=== PATIENT | female | born 1975 | race Caucasian/White ===

== ENCOUNTER 2020-03-02 17:12 | Emergency (ER) | payer OTHER, SELFPAY ==
[2020-03-02 17:30] VITALS: BP 141/79; PULSE 83; RESP 16; TEMP 36.6; O2SAT 100; BMI 23.0
--- NOTE | 2020-03-02 17:48 | ED.BACK ---
HPI - Back Pain/Injury General Chief Complaint: Back Pain/Injury <RUSLAN Dumont - Last Filed: 03/02/20 18:01> Stated Complaint: Back Pain <RUSLAN Dumont - Last Filed: 03/02/20 18:01> Time Seen by Provider: 03/02/20 17:39 <RUSLAN Dumont - Last Filed: 03/02/20 18:01> History of Present Illness HPI Narrative: patient complains of right-sided low back pain that radiates intermittently to the right thigh, no numbness no weakness or paresthesias no change in bowel or bladder habits, no injury no falls <RUSLAN Dumont - Last Filed: 03/02/20 18:01> Related Data Home Medications: Previous Rx's Medication Instructions Recorded cyclobenzaprine 10 mg PO TID PRN #14 tab 03/02/20 hydrocodone-acetaminophen 1 - 2 tab PO Q6H PRN #14 tab 03/02/20 ibuprofen 600 mg PO Q6H PRN #20 tab 03/02/20 <RUSLAN Dumont - Last Filed: 03/02/20 18:01> Allergies/Adverse Reactions: Allergies Allergy/AdvReac Type Severity Reaction Status Date / Time No Known Allergies Allergy Unverified 02/14/20 19:39 [No Known Allergies*] <RUSLAN Dumont - Last Filed: 03/02/20 18:01> Review of Systems Review of Systems: no numbness no weakness or paresthesias no fever no chills no chest pain no abdominal pain no urinary changes no urinary symptoms no changes to bowel or bladder, no trauma <RUSLAN Dumont - Last Filed: 03/02/20 18:01> Yes all other systems are reviewed and are negative <RUSLAN Dumont - Last Filed: 03/02/20 18:01> PMFSH Past Medical History Source: nursing notes reviewed <RUSLAN Dumont - Last Filed: 03/02/20 18:01> Medical History: Medical History (Updated 03/02/20 @ 17:54 by RUSLAN Dumont) Asthma <RUSLAN Dumont Last Filed: 03/02/20 18:01> Surgical History: Surgical History (Updated 03/02/20 @ 17:33 by Marina Michel) History of throat surgery <RUSLAN Dumont - Last Filed: 03/02/20 18:01> Social History Social History: Social History Smoking Status: Current every day smoker Use of substances other than those prescribed or required for medical reasons: No Advance Directives: No Advance Directives Information Provided: No <RUSLAN Dumont - Last Filed: 03/02/20 18:01> Physical Exam Vital Signs and I&O and Narrative: Vital Signs and I&O: Vital Signs Temp 97.9 F 03/02/20 17:30 Pulse 83 03/02/20 17:30 Resp 16 03/02/20 17:30 BP 141/79 H 03/02/20 17:30 Pulse Ox 100 03/02/20 17:30 Intake & Output 03/01/20 03/02/20 03/02/20 18:59 06:59 18:59 Weight 58.967 kg Body Mass Index 23.0 <RUSLAN Dumont Last Filed: 03/02/20 18:01> Vital Signs and I&O: Vital Signs Temp 97.9 F 03/02/20 17:30 Pulse 83 03/02/20 17:30 Resp 16 03/02/20 17:30 BP 141/79 H 03/02/20 17:30 Pulse Ox 100 03/02/20 17:30 Intake & Output 03/01/20 03/02/20 03/02/20 18:59 06:59 18:59 Weight 58.967 kg Body Mass Index 23.0 <Davonte Abbasi DO - Last Filed: 03/02/20 18:31> patient is in no acute distress but appears uncomfortable she is A&O x3 and cooperative Normocephalic atraumatic neck is supple chest is nontender the abdomen is soft and nontender the back has right low back tenderness soft tissue tenderness, no bony tenderness, the skin is normal color there is no redness or warmth or swelling or rash, pain is easily reproduced with movement, there is no CVA tenderness Extremities is full range of motion x4 Neuro is a and O x3 with no numbness no weakness, gait is normal <RUSLAN Dumont Last Filed: 03/02/20 18:01> Discharge Plan Discharge Clinical Impression: Back pain Qualifiers: Back pain location: low back pain Back pain laterality: right <RUSLAN Dumont - Last Filed: 03/02/20 18:01> Patient Disposition: Home, Self-Care <RUSLAN Dumont Last Filed: 03/02/20 18:01> Instructions: Back Pain (ED) <RUSLAN Dumont - Last Filed: 03/02/20 18:01> Additional Instructions: follow with primary care doctor as needed for possible physical therapy, and further evaluation Chiropractor, massage acupuncture are all helpful Return any time if worse <RUSLAN Dumont Last Filed: 03/02/20 18:01> Prescriptions: New hydrocodone-acetaminophen 5-325 mg tablet 1 - 2 tab PO Q6H PRN (Reason: pain) Qty: 14 RF: 0 ibuprofen 600 mg tablet 600 mg PO Q6H PRN (Reason: pain) Qty: 20 RF: 0 cyclobenzaprine 10 mg tablet 10 mg PO TID PRN (Reason: muscle spasm) Qty: 14 RF: 0 <RUSLAN Dumont Last Filed: 03/02/20 18:01> Stand Alone Forms: Work/School Release <RUSLNA Dumont Last Filed: 03/02/20 18:01>
[2020-03-02] MEDS: HYDROcodone Bit/Acetam 5/325 TABLET 2 TAB PO (18:06)
[2020-03-02] MEDS: Ketorolac Tromethamine 30 MG/ML VIAL IM (18:06)
== END 2020-03-02 19:00 | disposition home or self-care (01) ==
PROVIDERS: Emergency Provider Emergency Medicine
DX: M54.5 Low back pain (principal)
CPT/HCPCS: 96372; 99284; J1885

== ENCOUNTER 2020-04-05 21:15 | Emergency (ER) | payer OTHER, SELFPAY ==
[2020-04-05 21:17] VITALS: BP 134/87; PULSE 99; RESP 22; TEMP 37.1; O2SAT 97; BMI 21.2
--- NOTE | 2020-04-05 21:54 | ED.BACK ---
HPI - Back Pain/Injury General Chief Complaint: Back Pain/Injury Stated Complaint: Back pain Time Seen by Provider: 04/05/20 21:45 History of Present Illness HPI Narrative: Patient is a 44-year-old female no history of trauma. Presents today with having back pain radiating down the left lower extremity down to the thigh area. No bowel urinary incontinence. No focal weakness. The pain is sharp in nature. Is very sudden in onset. Patient denies any systemic complaints. No history of IV drug use. No upper respiratory symptoms. Patient from home. Attempted to use Motrin about 4 hours ago without any relief of pain. Presented to the emergency department. Related Data Previous Rx's Medication Instructions Recorded cyclobenzaprine 10 mg PO TID PRN #14 tab 03/02/20 hydrocodone-acetaminophen 1 - 2 tab PO Q6H PRN #14 tab 03/02/20 ibuprofen 600 mg PO Q6H PRN #20 tab 03/02/20 cyclobenzaprine 10 mg PO TID PRN #14 tab 04/05/20 ibuprofen 400 mg PO Q6H PRN #20 tab 04/05/20 Allergies Allergy/AdvReac Type Severity Reaction Status Date / Time No Known Allergies Allergy Verified 04/05/20 21:20 [No Known Allergies*] Review of Systems Review of Systems: Constitutional: No Weight loss, No Fever, No Chills, No Night Sweats, No Fatigue, No Malaise ENT/Mouth: No Hearing loss, No Ear Pain, No Nasal Congestion, No Sinus Pain, No Hoarseness, No sore throat, No Rhinorrhea, No Swallowing Difficulty Eyes: No Eye Pain, No Swelling, No Redness, No Foreign Body, No Discharge, No Vision Changes Cardiovascular: No Chest Pain, No SOB, No Dyspnea on Exertion, No Orthopnea, No Edema, No Palpitations Respiratory: No Cough, No Sputum, No Wheezing, No Smoke Exposure, No Dyspnea Gastrointestinal: No Nausea, No Vomiting, No Diarrhea, No Constipation, No abdominal Pain, No Hematochezia, No Melena Genitourinary: no irregular bleeding, No Dysuria, No Urinary Frequency, No Hematuria, No Urinary Incontinence, No Urgency, No Flank Pain, No Urinary Flow Changes, No Hesitancy Musculoskeletal: No joint pain, No Myalgias, No Joint Swelling Skin: No Skin Lesions, No rash Neuro: No Weakness, No Numbness, No Paresthesias, No Loss of Consciousness, No Dizziness, No Headache Psych: No Anxiety/Panic, No Depression, No SI/HI/AH/VH, No Social Issues, Heme/Lymph: No Bruising, No Bleeding,No Lymphadenopathy Endocrine: No Polyuria, No Polydipsia, No Temperature Intolerance Yes all other systems are reviewed and are negative [facility] Past Medical History Attestation statement: The following information was validated with the patient. Medical History Asthma Surgical History History of throat surgery Social History Social History Alcohol intake: never Smoking Status: Current every day smoker Smoked in Last 30 Days: Yes Use of substances other than those prescribed or required for medical reasons: No Advance Directives: No Advance Directives Information Provided: Yes Physical Exam Vital Signs: Vital Signs: Last Vital Signs Temp 98.8 F 04/05/20 21:17 Pulse 68 04/05/20 23:05 Resp 16 04/05/20 23:05 BP 123/77 04/05/20 23:05 Pulse Ox 97 04/05/20 23:05 Body Mass Index 21.2 Appearance: Alert. Oriented X3. No acute distress. Eyes: Pupils equal, round and reactive to light. ENT: Pharynx normal. Neck: Normal inspection. Neck supple. No lymph nodes noted. No crepitus CVS: Normal heart rate and rhythm. Pulses normal. Normal S1 and S2 Respiratory: No respiratory distress. Breath sounds normal. No Wheezing. No rales Abdomen: Soft and nontender. No rigidity. No distention. good BS x4 Skin: Skin warm and dry. Normal skin color. Normal skin turgor. Extremities: No lower extremity edema. Neurovascular intact to all extremities. No Lacerations. No Rash, negative straight leg raise test. Sensation in lower extremity intact. Able to ambulate. Neuro: Oriented X 3. No motor deficit. No sensory deficit. Moving all extermities. No slurred speech, reflexes are 2+ at patella bilaterally Back exam there is no spinal tenderness. There is paraspinal muscle tenderness on palpation on the left side. MDM - Back Pain/Injury MDM Narrative Medical decision making narrative: Patient has no bowel urinary incontinence. No focal weakness. Pain improved with medication. Will discharge patient home close follow-up on an outpatient basis. In stable condition. Discharge Plan Discharge Clinical Impression: Sciatica Patient Disposition: Home, Self-Care Instructions: Sciatica (ED) Prescriptions: New ibuprofen 400 mg tablet 400 mg PO Q6H PRN (Reason: pain) Qty: 20 RF: 0 cyclobenzaprine 10 mg tablet 10 mg PO TID PRN (Reason: muscle spasm) Qty: 14 RF: 0 No Action hydrocodone-acetaminophen 5-325 mg tablet 1 - 2 tab PO Q6H PRN (Reason: pain) Qty: 14 RF: 0 ibuprofen 600 mg tablet 600 mg PO Q6H PRN (Reason: pain) Qty: 20 RF: 0 cyclobenzaprine 10 mg tablet 10 mg PO TID PRN (Reason: muscle spasm) Qty: 14 RF: 0 Referrals: Physician,Unknown [Primary Care Provider] - 2 days
[2020-04-05] MEDS: LORazepam 2 MG/ML VIAL 0.5 MG IVPUSH (22:19)
[2020-04-05 22:23] VITALS: RESP 18
[2020-04-05] MEDS: HYDROmorphone HCl 0.5 MG/0.5 ML SYRINGE IVPUSH (22:23)
[2020-04-05] MEDS: ondansetron HCL 4 MG/2 ML VIAL IVPUSH (22:25)
[2020-04-05] MEDS: Ketorolac Tromethamine 15 MG/ML VIAL IV (22:40)
[2020-04-05 22:52] VITALS: BP 122/68; PULSE 87; RESP 18
[2020-04-05 23:05] VITALS: BP 123/77; PULSE 68; RESP 16; O2SAT 97
--- NOTE | 2020-04-05 23:13 | PC.NURSE ---
PT FEELS RELIEF AFTER PAIN MEDICATION 4
== END 2020-04-05 23:21 | disposition home or self-care (01) ==
PROVIDERS: Emergency Provider Emergency Medicine Emergency Medical Services
DX: M54.32 Sciatica, left side (principal); M54.31 Sciatica, right side; M79.652 Pain in left thigh; F17.200 Nicotine dependence, unspecified, uncomplicated; Z71.6 Tobacco abuse counseling; Z79.899 Other long term (current) drug therapy
CPT/HCPCS: 96374; 96375; 99284; J1170; J1885; J2060; J2405

== ENCOUNTER 2020-04-11 18:07 | Emergency (ER) | payer OTHER, SELFPAY ==
[2020-04-11 18:21] VITALS: BP 109/85; PULSE 110; RESP 16; TEMP 37.1; O2SAT 100; BMI 21.2
--- NOTE | 2020-04-11 18:30 | ED_ITS ---
HPI - Back Pain/Injury General Chief Complaint: Back Pain/Injury Stated Complaint: Back Pain (no inj) Time Seen by Provider: 04/11/20 18:30 History of Present Illness HPI Narrative: Patient complains of pain in the low back that is radiating to the right leg, no weakness no incontinence no loss of sensation, she has had no recent injury, she was seen here recently 3 days ago for the same pain and was treated with Flexeril and Motrin but pain continues and is not relieved This is been going on for several days and the pain is moderate Related Data Previous Rx's Medication Instructions Recorded cyclobenzaprine 10 mg PO TID PRN #14 tab 03/02/20 hydrocodone-acetaminophen 1 - 2 tab PO Q6H PRN #14 tab 03/02/20 ibuprofen 600 mg PO Q6H PRN #20 tab 03/02/20 cyclobenzaprine 10 mg PO TID PRN #14 tab 04/05/20 ibuprofen 400 mg PO Q6H PRN #20 tab 04/05/20 oxycodone-acetaminophen [Percocet] 1 - 2 tab PO Q6H PRN #14 tab 04/11/20 prednisone 60 mg PO DAILY 4 Days #12 tab 04/11/20 Allergies Allergy/AdvReac Type Severity Reaction Status Date / Time No Known Allergies Allergy Verified 04/05/20 21:20 [No Known Allergies*] Review of Systems Review of Systems: Review of systems is positive for back pain and radiation of pain to the right leg No fever no chills no chest pain no shortness of breath no weakness no changes to bowel or bladder no dysuria no abdominal pain no rash Yes all other systems are reviewed and are negative [facility] Past Medical History Attestation statement: The following information was validated with the patient. [facility] Narrative: Patient has prior history of back pain episodes and this is similar to episodes in the past Source: nursing notes reviewed Medical History Asthma Surgical History History of throat surgery Social History Social History Alcohol intake: never Smoking Status: Current every day smoker Use of substances other than those prescribed or required for medical reasons: No Advance Directives: No Advance Directives Information Provided: Yes Physical Exam Vital Signs: Vital Signs: Last Vital Signs Temp 98.7 F 04/11/20 18:21 Pulse 110 H 04/11/20 18:21 Resp 16 04/11/20 18:21 BP 109/85 04/11/20 18:21 Pulse Ox 100 04/11/20 18:21 Body Mass Index 21.2 The patient is in no acute distress, uncomfortable appearing A&O x3 standing as it is more comfortable than sitting with her back flexed forward as it is painful to fully straighten her back Head is normocephalic atraumatic The neck is supple and nontender The chest there is no respiratory distress Abdomen is soft nontender The back has bilateral paraspinal soft tissue tenderness with normal-appearing skin no redness no wart with no focal bony tenderness no CVA tenderness Pain is reproduced with movement and back range of motion is limited she stands in a partially flexed position Extremities is full range of motion x4 neuro is motor is 5 over 5 times for with no sensory deficit, patient can ambulate with full strength in her legs but is uncomfortable walking as it is painful to straighten her back Course Course Course Narrative: Patient had some relief with Toradol and was able to ambulate from the department I started steroid prednisone and gave a script for Percocet for additional pain relief as Marie has not worked Discharge Plan Discharge Clinical Impression: Sciatica Qualifiers: Laterality: right Qualified Code(s): M54.31 - Sciatica, right side Patient Disposition: Home, Self-Care Additional Instructions: Pain is likely from pinched nerve and inflammation in your back We started prednisone steroid which in many patients relieves inflammation around the nerve and improves pain Follow with primary care physician as physical therapy is often helpful and if referral to specialist or other treatment is needed they can refer you Return any concerns Prescriptions: New oxycodone-acetaminophen [Percocet] 5-325 mg tablet 1 - 2 tab PO Q6H PRN (Reason: pain) Qty: 14 RF: 0 prednisone 20 mg tablet 60 mg PO DAILY 4 Days Qty: 12 RF: 0 No Action hydrocodone-acetaminophen 5-325 mg tablet 1 - 2 tab PO Q6H PRN (Reason: pain) Qty: 14 RF: 0 ibuprofen 600 mg tablet 600 mg PO Q6H PRN (Reason: pain) Qty: 20 RF: 0 cyclobenzaprine 10 mg tablet 10 mg PO TID PRN (Reason: muscle spasm) Qty: 14 RF: 0 ibuprofen 400 mg tablet 400 mg PO Q6H PRN (Reason: pain) Qty: 20 RF: 0 cyclobenzaprine 10 mg tablet 10 mg PO TID PRN (Reason: muscle spasm) Qty: 14 RF: 0 Stand Alone Forms: Work/School Release Interventions: ED Discharge Assessment Last Done: 04/11/20 18:55 Discharge Date/Time: 04/11/20 18:57
[2020-04-11] MEDS: Ketorolac Tromethamine 30 MG/ML VIAL IM (18:47)
[2020-04-11] MEDS: predniSONE 20 MG TABLET 60 MG PO (18:47)
== END 2020-04-11 18:57 | disposition home or self-care (01) ==
PROVIDERS: Emergency Provider Emergency Medicine
DX: M54.41 Lumbago with sciatica, right side (principal); F17.200 Nicotine dependence, unspecified, uncomplicated; Z71.6 Tobacco abuse counseling; Z79.899 Other long term (current) drug therapy
CPT/HCPCS: 96372; 99284; J1885

== ENCOUNTER 2020-11-06 13:35 | Emergency (ER) | payer OTHER, SELFPAY ==
[2020-11-06 13:48] VITALS: BP 141/82; PULSE 97; RESP 16; TEMP 36.7; O2SAT 100; BMI 25.6
[2020-11-06] MEDS: Ketorolac Tromethamine 30 MG/ML VIAL IM (15:03)
[2020-11-06] MEDS: Cyclobenzaprine HCl 5 MG TABLET PO (15:03)
--- NOTE | 2020-11-06 15:59 | ED.GENADULT ---
HPI - General Adult General Chief complaint: Back Pain/Injury Stated complaint: extreme back pain Time Seen by Provider: 11/06/20 14:36 Source: patient Mode of arrival: ambulatory Limitations: no limitations History of Present Illness HPI narrative: Patient presents to ED for sciatica exacerbation. Patient states back pain radiating down leg. Patient denies any recent trauma. 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 Patient this is similar to prior presentations. Patient denies any abdominal pain, nausea, vomiting, fever, flank pain, dysuria, hematuria, or vaginal bleeding Related Data Previous Rx's Medication Instructions Recorded cyclobenzaprine 10 mg PO TID PRN #14 tab 03/02/20 hydrocodone-acetaminophen 1 - 2 tab PO Q6H PRN #14 tab 03/02/20 ibuprofen 600 mg PO Q6H PRN #20 tab 03/02/20 cyclobenzaprine 10 mg PO TID PRN #14 tab 04/05/20 ibuprofen 400 mg PO Q6H PRN #20 tab 04/05/20 oxycodone-acetaminophen [Percocet] 1 - 2 tab PO Q6H PRN #14 tab 04/11/20 prednisone 60 mg PO DAILY 4 Days #12 tab 04/11/20 oxycodone-acetaminophen [Percocet] 1 tab PO TID PRN #9 tab 11/06/20 prednisone 40 mg PO DAILY #10 tab 11/06/20 Allergies Allergy/AdvReac Type Severity Reaction Status Date / Time No Known Allergies Allergy Verified 04/05/20 21:20 [No Known Allergies*] Review of Systems Review of Systems: Yes all other systems are reviewed and are negative Constitutional: Constitutional: Reports as per HPI and Reports no additional constitutional complaints Eyes: Eyes: Reports as per HPI and Reports no additional eye complaints ENT: Reports system reviewed and no additional complaints, except as documented and Reports as per HPI Cardiovascular: Cardiovascular: Reports as per HPI and Reports no additional cardiovascular complaints Respiratory: Respiratory: Reports as per HPI and Reports no additional respiratory complaints Gastrointestinal: Gastrointestinal: Reports as per HPI and Reports no additional gastrointestinal complaints Genitourinary: Genitourinary: Reports no additional female genitourinary complaints and Reports as per HPI Musculoskeletal: Musculoskeletal: Reports no additional musculoskeletal complaints, Reports as per HPI and Reports back pain Neurologic: Reports system reviewed and no additional complaints, except as documented and Reports as per HPI Psychiatric: Psychiatric: Reports no additional psychiatric complaints and Reports as per HPI [facility] Past Medical History Medical History (Updated 11/06/20 @ 16:10 by RUSLAN Shelley) Asthma Sciatica Surgical History History of throat surgery Social History Social History Alcohol intake: never Advance Directives: Yes Advance Directives Information Provided: Yes Advance Directives on File: No Patient : No Physical Exam Vital Signs: Vital Signs: Last Vital Signs Temp 98.0 F 11/06/20 13:48 Pulse 97 11/06/20 13:48 Resp 16 11/06/20 13:48 BP 141/82 H 11/06/20 13:48 Pulse Ox 100 11/06/20 13:48 Body Mass Index 25.6 Const: General: cooperative, healthy appearing, comfortable, no acute distress, well developed, alert, awake and Physically active Orientation/consciousness: patient oriented x3 HENMT: Head: Yes normal to inspection, Yes No palpable skull fracture present, Yes normocephalic, Yes atraumatic, No abrasion, No Acrocyanosis present, No Carlisle's sign, No contusion, No cranial bruits, No hematoma, No laceration, No occipital foramen tenderness, No palpable skull fracture, No raccoon eyes, No scalp lesion, No scalp tenderness, No Temporal artery tenderness present and No periorbital ecchymosis Eyes: General: appearance normal, both eyes and all related structures Neck: Neck: Yes normal visual inspection, Yes full ROM, Yes no lymphadenopathy, Yes no meningeal signs, Yes trachea midline, Yes supple and No tender Chest: Chest palpation & inspection: normal inspection of the chest and normal palpation of entire chest wall Resp: Effort & Inspection: normal respiratory effort and able to speak in complete sentences Auscultation: clear to auscultation bilaterally Cardio: Jugular venous distension: no JVD Heart sounds: S1 normal heart sound present and S2 normal heart sound present GI: Inspection: Yes normal to inspection and No abdominal wall ecchymosis Palpation (GI): Soft to palpation, not firm, nontender, no guarding and not rigid : General: No CVA tenderness and Yes no CVA tenderness Back/Spine/Pelvis: Back: no CVA tenderness, No CVA tenderness and back tenderness (Sciatica pain) Skin: General skin exam: no rashes or lesions noted and elasticity normal Neuro: General: patient oriented x3, gait normal, no meningeal signs and CN's II-XI intact bilaterally Cranial nerves: Yes CN's II-XII intact bilaterally Extrem: General: Yes normal to inspection and Yes full ROM Psych: Appearance: grossly normal, well kempt and not disheveled Course Course Course Narrative: No need for repeat imaging. Patient does not have any new trauma. Patient given Toradol Flexeril Reevaluation(s) Reevaluation #1: Patient is started on Flexeril helped. Patient already has Flexeril at home and Motrin states that was not effective. Patient will be prescribed steroid and narcotic. Patient informed not to take muscle relaxer due to her being prescribed narcotics. Patient ambulate on her own. Patient denies any urinary or bowel incontinence. Not suspecting any cord compression. Patient is safe for discharge Time: 16:07 Reevaluation #2: Medical Decision Making [facility] Narrative Medical decision making narrative: Sciatica Discharge Plan Discharge Clinical Impression: Sciatica Patient Disposition: Home, Self-Care Instructions: Sciatica (ED) Additional Instructions: Return to the ED for worsening back pain, urinary/bowel incontinence, flank pain, fever, chills, dysuria, hematuria, abdominal pain, or any other concerning symptoms. Discontinue use of Flexeril. He will be prescribed steroid and narcotic for pain. Please follow up with PCP Prescriptions: New oxycodone-acetaminophen [Percocet] 5-325 mg tablet 1 tab PO TID PRN (Reason: pain) Qty: 9 RF: 0 prednisone 20 mg tablet 40 mg PO DAILY Qty: 10 RF: 0 No Action hydrocodone-acetaminophen 5-325 mg tablet 1 - 2 tab PO Q6H PRN (Reason: pain) Qty: 14 RF: 0 ibuprofen 600 mg tablet 600 mg PO Q6H PRN (Reason: pain) Qty: 20 RF: 0 cyclobenzaprine 10 mg tablet 10 mg PO TID PRN (Reason: muscle spasm) Qty: 14 RF: 0 ibuprofen 400 mg tablet 400 mg PO Q6H PRN (Reason: pain) Qty: 20 RF: 0 cyclobenzaprine 10 mg tablet 10 mg PO TID PRN (Reason: muscle spasm) Qty: 14 RF: 0 oxycodone-acetaminophen [Percocet] 5-325 mg tablet 1 - 2 tab PO Q6H PRN (Reason: pain) Qty: 14 RF: 0 prednisone 20 mg tablet 60 mg PO DAILY 4 Days Qty: 12 RF: 0 Stand Alone Forms: Work/School Release Interventions: ED Discharge Assessment Last Done: 11/06/20 16:29 Discharge Date/Time: 11/06/20 16:29 Print Language: [place]
== END 2020-11-06 16:29 | disposition home or self-care (01) ==
PROVIDERS: Emergency Provider Emergency Medicine Emergency Medical Services
DX: M54.40 Lumbago with sciatica, unspecified side (principal)
CPT/HCPCS: 96372; 99283; 99284; J1885